=== PATIENT | male | born 1995 | race African-American/Black ===

== ENCOUNTER 2019-11-13 16:54 | Emergency (ER) | payer SELFPAY ==
[2019-11-13] MEDS ORDERED: Azithromycin 250 MG TAB ONE (18:02)
[2019-11-13] MEDS ORDERED: cefTRIAXone\\ROCEPHIN 250 MG VIAL ONE (18:02)
[2019-11-13] MEDS ORDERED: Lidocaine 1% PF 5 ML VIAL ONE (18:03)
[2019-11-13 18:38] LABS: Bilirubin Negative (Negative); Blood, Urine Negative (Negative); Clarity Clear (Clear); Glucose, Urine (Dipstick) Normal (Negative); Leukocyte 500 Leu/uL (Negative); Nitrite Negative (Negative); Protein, Urine (Dipstick) 50 mg/dL (Neg-Trace); RBC/HPF 0-3 HPF (0-3); Squamous Epithelial 0-3 HPF (0-3); WBC/HPF Greater than 50 HPF (0-3)
[2019-11-13 18:48] LABS: Bacteria/HPF None Seen HPF (None Seen); Mucous/LPF 1+ LPF (<2+)
[2019-11-15 17:20] LABS: Chlam.trachomatis by PCR,Urine DETECTED (NotDetected)
== END 2019-11-13 19:08 | disposition home or self-care (01) ==
LOC: ERS 16:54
DX: N34.2 Other urethritis (principal); F17.210 Nicotine dependence, cigarettes, uncomplicated
CPT/HCPCS: 81003; 81015; 87491; 87591; 96372; 99283; J0696; J2001

== ENCOUNTER 2020-07-06 16:43 | Emergency (ER) | payer SELFPAY ==
[2020-07-06] MEDS ORDERED: HYDROcodone/Acetaminophen 5/325 mg Tablet ONE (17:49)
== END 2020-07-06 18:05 | disposition home or self-care (01) ==
LOC: ERS 16:43
DX: K04.7 Periapical abscess without sinus (principal); K03.81 Cracked tooth; K02.9 Dental caries, unspecified; F17.210 Nicotine dependence, cigarettes, uncomplicated
CPT/HCPCS: 99283